=== PATIENT | male | born 1955 | race Caucasian/White ===

== ENCOUNTER 2022-05-18 14:40 | Outpatient (CLI) | payer MEDICARE, BC | END 2022-05-18 14:41 | disposition home or self-care (01) | LOC: NAV RAD 14:40 | DX: G93.31 Postviral fatigue syndrome (principal) | CPT/HCPCS: 71046 ==

== ENCOUNTER 2022-07-23 17:13 | Outpatient (CLI) | payer MEDICARE, BC | END 2022-07-23 17:14 | disposition home or self-care (01) | LOC: NAV RAD 17:13 | PROVIDERS: ATTEND Nurse Practitioner Family | DX: M54.50 Low back pain, unspecified (principal); M47.816 Spondylosis without myelopathy or radiculopathy, lumbar region; M43.16 Spondylolisthesis, lumbar region; M51.36 Other intervertebral disc degeneration, lumbar region | CPT/HCPCS: 72100 ==